=== PATIENT | male | born 1955 | race Caucasian/White ===

== ENCOUNTER 2017-10-05 10:55 | Outpatient (CLI) | payer MEDICARE, MEDICAID ==
[2017-10-05 13:30] LABS: Bilirubin Negative (Negative); Blood, Urine Trace (Negative); Clarity Clear (Clear); Glucose, Urine (Dipstick) Negative (Negative); Leukocyte Negative (Negative); Nitrite Negative (Negative); Protein, Urine (Dipstick) 100 mg/dL (Neg-Trace)
[2017-10-05 13:35] LABS: Bacteria/HPF 1+ HPF (None Seen); RBC/HPF 0-3 HPF (0-3); Squamous Epithelial 0-3 HPF (0-3); WBC/HPF 0-3 HPF (0-3)
[2017-10-05 13:36] LABS: Crystals/HPF 2+ AMORPH URATES HPF (Negative); Yeast-All Forms Rare HPF (None Seen)
[2017-10-05 21:08] LABS: Follow-up Chemistry Comp? YES; Follow-up Result - Chemistry REPORT FAXED
== END 2017-10-05 10:56 | disposition home or self-care (01) ==
LOC: MADLAB 10:55
PROVIDERS: ATTEND Family Medicine
DX: G20 Parkinson's disease (principal); I63.9 Cerebral infarction, unspecified; F20.89 Other schizophrenia; F33.9 Major depressive disorder, recurrent, unspecified; Z91.81 History of falling
CPT/HCPCS: 80177; 81001; 87086

== ENCOUNTER 2018-12-08 13:08 | Emergency (ER) | payer MEDICARE, MEDICAID ==
--- NOTE | 2018-12-08 13:28 | RAD ---
FFrontal radiograph chest: 12/08/2018 COMPARISON: 03/23/2017 HISTORY: Short of breath FINDINGS: Multiple old right-sided rib fractures are noted. There is postoperative hardware associate d with the right clavicle. Catheter tubing overlies the medial aspect of the left hemithorax suggesti ng a [employer] shunt. No pneumothorax, pleural fluid, focal consolidation, or alveolar edema. IMPRESSION: No acute findings.
[2018-12-08 13:59] LABS: #Basophils 0.1 thou/uL (0.0-0.2); #Eosinphils 0.2 thou/uL (0.0-0.7); #Lymphocytes 1.6 thou/uL (1.20-3.40); #Monocytes 0.9 thou/uL (0.11-0.59); #Neutrophils 7.4 thou/uL (1.40-6.50); %Basophils 0.6 % (0.0-1.0); %Eosinophils 1.6 % (0.0-10.0); %Monocytes 8.9 % (0.0-10.0); %Neutrophils 72.9 % (42.0-75.0); Hemoglobin 13.7 g/dL (14.0-18.0); Mean Corpuscular Hemoglobin 30.7 pg (27.0-31.0); Mean Corpuscular Volume 96.1 fL (78.0-98.0); Mean Platelet Volume 6.2 fL (7.4-10.4); Platelet Count 177 thou/uL (130-400); RBC Distribution Width 12.4 % (11.5-14.5); Red Blood Cell (RBC) Count 4.44 mill/uL (4.70-6.10); White Blood Cell (WBC) Count 10.1 thou/uL (4.8-10.8)
[2018-12-08 14:16] LABS: ALT (SGPT) 16 U/L (8-55); AST (SGOT) 25 U/L (5-34); Albumin 4.1 g/dL (3.4-4.8); Alkaline Phosphatase 50 U/L (40-150); Anion Gap 14 mmol/L (10-20); BUN (Urea Nitrogen) 27 mg/dL (8.4-25.7); Bilirubin, Total 0.6 mg/dL (0.2-1.2); Calc. Creatinine Clearance 0 mL/min (70-130); Calcium 9.5 mg/dL (7.8-10.44); Carbon Dioxide 27 mmol/L (23-31); Chloride 107 mmol/L (98-107); Estimated GFR-MDRD 70; Globulin 3.2 g/dL (2.4-3.5); Glucose 111 mg/dL (80-115); Potassium 3.5 mmol/L (3.5-5.1); Protein, Total 7.3 g/dL (5.8-8.1); Sodium 144 mmol/L (136-145)
== END 2018-12-08 15:17 | disposition home or self-care (01) ==
LOC: MADERS 13:08
DX: Z03.89 Encounter for observation for other suspected diseases and conditions ruled out (principal); G40.909 Epilepsy, unspecified, not intractable, without status epilepticus; I63.9 Cerebral infarction, unspecified; F32.9 Major depressive disorder, single episode, unspecified; F03.90 Unspecified dementia, unspecified severity, without behavioral disturbance, psychotic disturbance, mood disturbance, and anxiety; D64.9 Anemia, unspecified; F20.9 Schizophrenia, unspecified; Z79.899 Other long term (current) drug therapy
CPT/HCPCS: 36415; 71045; 80053; 84484; 85025; 93005

== ENCOUNTER 2019-04-17 20:41 | Emergency (ER) | payer MEDICARE, MEDICAID ==
[2019-04-17] MEDS ORDERED: Midazolam HCl 2 mg/2 ml Vial ONE ×2 (20:55→21:08)
[2019-04-17 21:00] LABS: #Basophils 0.1 thou/uL (0.0-0.2); #Lymphocytes 1.1 thou/uL (1.20-3.40); #Monocytes 0.6 thou/uL (0.11-0.59); #Neutrophils 8.1 thou/uL (1.40-6.50); %Basophils 0.7 % (0.0-1.0); %Eosinophils 0.2 % (0.0-10.0); %Lymphocytes 10.7 % (21.0-51.0); %Monocytes 5.9 % (0.0-10.0); %Neutrophils 82.5 % (42.0-75.0); Mean Corpuscular HGB CONC 33.9 g/dL (32.0-36.0); Mean Corpuscular Hemoglobin 31.1 pg (27.0-31.0); Mean Corpuscular Volume 91.6 fL (78.0-98.0); Mean Platelet Volume 6.3 fL (7.4-10.4); Platelet Count 267 thou/uL (130-400); RBC Distribution Width 11.6 % (11.5-14.5); Red Blood Cell (RBC) Count 4.52 mill/uL (4.70-6.10); White Blood Cell (WBC) Count 9.8 thou/uL (4.8-10.8)
[2019-04-17 21:18] LABS: ALT (SGPT) 14 U/L (8-55); AST (SGOT) 21 U/L (5-34); Albumin 4.3 g/dL (3.4-4.8); Alkaline Phosphatase 54 U/L (40-150); Anion Gap 26 mmol/L (10-20); BUN (Urea Nitrogen) 20 mg/dL (8.4-25.7); Bilirubin, Total 0.4 mg/dL (0.2-1.2); Calc. Creatinine Clearance 0 mL/min (70-130); Calcium 9.9 mg/dL (7.8-10.44); Carbon Dioxide 16 mmol/L (23-31); Chloride 102 mmol/L (98-107); Estimated GFR-MDRD 64; Globulin 3.4 g/dL (2.4-3.5); Glucose 169 mg/dL (80-115); Potassium 3.8 mmol/L (3.5-5.1); Protein, Total 7.7 g/dL (5.8-8.1); Sodium 140 mmol/L (136-145)
--- NOTE | 2019-04-17 21:36 | CT ---
Head CT without contrast 04/17/2019: COMPARISON: 12/25/2018 HISTORY: Seizure, fall TECHNIQUE: Axial CT imaging at 5 mm intervals from vertex through skull base without contrast. Mercado l and sagittal reformatted imaging obtained. FINDINGS: Motion artifact limits detailed assessment at the axial level of the orbits. Stable the [employer] shunt present, inserted via a left posterior approach. There is soft tissue density within the external auditory canal on the left. Stable encephalomalacia of the left frontal lobe with evidence of prior left frontal craniotomy. Stab le calcification along the margin of the left lateral ventricle superiorly. No intracranial hemorrhage, midline shift, or mass effect. IMPRESSION: Stable chronic findings as described above.
--- NOTE | 2019-04-17 22:11 | CT ---
CERVICAL SPINE CT WITHOUT CONTRAST: Date: 04/17/19 COMPARISON: None. HISTORY: Seizure, fall. TECHNIQUE: Axial CT imaging at 2.5 mm intervals through the cervical spine with coronal and sagittal reformatted imaging. FINDINGS: The craniocervical junction appears intact. There is no widening of the atlantoaxial interspace. The cervicothoracic junction appears intact. There is no significant anterolisthesis or retrolisthesis wi thin the cervical spine. No prevertebral soft tissue swelling. There is multilevel mid cervical spine disc space narrowing with mild anterior osteophyte formation. The C1 ring is intact. The imaged lung apices are unremarkable. The occipital condyles, the dens, and the C1-2 articulation appear within normal limits. No acute fracture or dislocation is seen. At C5-6, there is uncovertebral osteophyte formation, right greater than left. Ventriculoperitoneal s seaman tubing is seen within the neck and upper chest on the left. IMPRESSION: No acute findings. POS: [facility]
[2019-04-17] MEDS ORDERED: Lorazepam 2 MG/ML VIAL ONE (23:06)
[2019-04-17] MEDS ORDERED: Fosphenytoin Sodium 500 mg/10 ml Vial ONE (23:10)
[2019-04-17] MEDS ORDERED: Sodium Chloride 0.9% 100 ML ONE (23:15)
[2019-04-17] MEDS ORDERED: levETIRAcetam 500 MG/100 ML PREMIX BAG ONE (23:53)
== END 2019-04-18 01:00 ==
LOC: MADERS 20:41
DX: S00.83XA Contusion of other part of head, initial encounter (principal); G40.909 Epilepsy, unspecified, not intractable, without status epilepticus; G20 Parkinson's disease; F20.9 Schizophrenia, unspecified; D64.9 Anemia, unspecified; F32.9 Major depressive disorder, single episode, unspecified; Z79.899 Other long term (current) drug therapy; W19.XXXA Unspecified fall, initial encounter
CPT/HCPCS: 70450; 72125; 80053; 85025; 96365; 96367; 96375; J1953; J2060; J2250; J3490; Q2009

== ENCOUNTER 2019-07-21 12:17 | Emergency (ER) | payer MEDICAID, MEDICARE ==
--- NOTE | 2019-07-21 13:30 | CT ---
Exam: Brain CT without IV contrast: HISTORY: Injury COMPARISON: 06/17/2019 FINDINGS: Left-sided ventriculostomy tube in place. Extensive left frontal encephalomalacia with associated vol ume loss and some periventricular areas of calcification or ossification. Minimal stable thickening of the right subdural region. No evidence for mass or acute hemorrhage. Postoperative left craniotomy change. Possible mild soft tissue swelling over the right frontal region superficially. IMPRESSION: No evidence for acute mass or hemorrhage. Possible minimal right frontal scalp swelling. Extensive ol d stable left-sided changes.
== END 2019-07-21 14:45 ==
LOC: MADERS 12:17
DX: S01.81XA Laceration without foreign body of other part of head, initial encounter (principal); G40.909 Epilepsy, unspecified, not intractable, without status epilepticus; F20.9 Schizophrenia, unspecified; F32.9 Major depressive disorder, single episode, unspecified; F03.90 Unspecified dementia, unspecified severity, without behavioral disturbance, psychotic disturbance, mood disturbance, and anxiety; D64.9 Anemia, unspecified; Z79.899 Other long term (current) drug therapy; Z79.891 Long term (current) use of opiate analgesic; W06.XXXA Fall from bed, initial encounter
CPT/HCPCS: 12011; 70450

== ENCOUNTER 2020-05-22 22:58 | Emergency (ER) | payer MEDICARE, MEDICAID ==
[2020-05-22] MEDS ORDERED: Lidocaine 1% w/Epinephrine 1:100K 20 ML VIAL ONE (23:01)
== END 2020-05-22 23:53 ==
LOC: MADERS 22:58
DX: S01.112A Laceration without foreign body of left eyelid and periocular area, initial encounter (principal); G40.909 Epilepsy, unspecified, not intractable, without status epilepticus; F32.9 Major depressive disorder, single episode, unspecified; F03.90 Unspecified dementia, unspecified severity, without behavioral disturbance, psychotic disturbance, mood disturbance, and anxiety; Z79.899 Other long term (current) drug therapy; W07.XXXA Fall from chair, initial encounter
CPT/HCPCS: 12013

== ENCOUNTER 2020-08-07 19:20 | Emergency (ER) | payer MEDICARE, MEDICAID ==
[2020-08-07] MEDS ORDERED: Lidocaine 4% Cream 5 GM TUBE w/ Tegaderm ONE (20:22)
--- NOTE | 2020-08-07 20:53 | CT ---
CT OF THE BRAIN WITHOUT CONTRAST: Date: 08/07/2020 COMPARISON: 07/21/2019. HISTORY: Fall with head trauma. TECHNIQUE: Multiple contiguous axial images were obtained in a CT of the brain without contrast. FINDINGS: Encephalomalacia is seen in the left frontal lobe. There is a left posterior approach ventriculostomy catheter. Scattered hypodensities are seen in the subcortical and periventricular white matter, like ly secondary to small vessel ischemic disease. There is no evidence of hydrocephalus, intracranial he morrhage, or extra-axial fluid collection. Postsurgical changes are seen in the frontal calvarium. The visualized paranasal sinuses and mastoid air cells are well aerated. IMPRESSION: No evidence of acute intracranial abnormality. POS: [facility]
--- NOTE | 2020-08-07 20:57 | CT ---
CT OF THE CERVICAL SPINE WITHOUT CONTRAST: Date: 08/07/2020 COMPARISON: None. HISTORY: Fall with head trauma and neck pain. TECHNIQUE: Multiple contiguous axial images were obtained in a CT of the cervical spine without contrast. Sagitt al and coronal reformats were performed. FINDINGS: There is scoliotic curvature of the cervical spine. There are mild to moderate degenerative changes o f the cervical spine. The vertebral bodies demonstrate normal height without fracture or subluxation. No prevertebral soft tissue swelling is seen. The posterior facets are well aligned. Normal alignment of the skull base with the cervical spine is seen. The lung apices are unremarkable. No focal thyroid abnormality is seen. IMPRESSION: Degenerative changes of the cervical spine without acute osseous abnormality. POS: [facility]
== END 2020-08-07 21:57 ==
LOC: MADERS 19:20
DX: S01.01XA Laceration without foreign body of scalp, initial encounter (principal); G40.909 Epilepsy, unspecified, not intractable, without status epilepticus; G20 Parkinson's disease; F20.9 Schizophrenia, unspecified; F32.9 Major depressive disorder, single episode, unspecified; F41.9 Anxiety disorder, unspecified; F03.90 Unspecified dementia, unspecified severity, without behavioral disturbance, psychotic disturbance, mood disturbance, and anxiety; D64.9 Anemia, unspecified; Z79.899 Other long term (current) drug therapy; W18.30XA Fall on same level, unspecified, initial encounter
CPT/HCPCS: 12002; 70450; 72125

== ENCOUNTER 2020-12-07 14:40 | Emergency (ER) | payer MEDICARE, MEDICAID ==
[2020-12-07] MEDS ORDERED: Lidocaine 1% 20 ML MDV ONE (15:22)
== END 2020-12-07 17:20 ==
LOC: MADERS 14:40
DX: S01.111A Laceration without foreign body of right eyelid and periocular area, initial encounter (principal); G40.909 Epilepsy, unspecified, not intractable, without status epilepticus; G20 Parkinson's disease; D64.9 Anemia, unspecified; I63.9 Cerebral infarction, unspecified; W18.30XA Fall on same level, unspecified, initial encounter
CPT/HCPCS: 12014; 70450; 72125

== ENCOUNTER 2021-05-01 13:14 | Emergency (ER) | payer MEDICARE, MEDICAID ==
[2021-05-01] MEDS ORDERED: Boostrix 0.5 ML (Tdap) VIAL ONE (15:46)
== END 2021-05-01 16:27 ==
LOC: MADERS 13:14
DX: S01.01XA Laceration without foreign body of scalp, initial encounter (principal); G40.909 Epilepsy, unspecified, not intractable, without status epilepticus; D64.9 Anemia, unspecified; Z86.16 Personal history of COVID-19; Z79.899 Other long term (current) drug therapy; Z86.73 Personal history of transient ischemic attack (TIA), and cerebral infarction without residual deficits; W18.30XA Fall on same level, unspecified, initial encounter
CPT/HCPCS: 12001; 70450; 72125; 90471; 90715